=== PATIENT | male | born 1985 | race Caucasian/White ===

== ENCOUNTER 2016-10-22 22:41 | Emergency (ER) | END 2016-10-22 23:19 | disposition left against medical advice (07) | LOC: ED 22:41 | DX: R51 Headache (principal); K08.89 Other specified disorders of teeth and supporting structures; Z53.21 Procedure and treatment not carried out due to patient leaving prior to being seen by health care provider ==

== ENCOUNTER 2016-10-23 03:16 | Emergency (ER) ==
[2016-10-23 03:25] VITALS: BP 147/81
[2016-10-23] MEDS ORDERED: HYDROXYZINE PO ONE (03:53)
--- NOTE | 2016-10-23 03:58 | PROVIDER DOCUMENTATION ---
HPI-General Adult - General Chief Complaint: General Adult Stated Complaint: ABD PAIN Time Seen by Provider: 10/23/16 03:28 Source: patient Allergies/Adverse Reactions: Patient Allergies Allergy/AdvReac Type Severity Reaction Status Date / Time No Known Allergies Allergy Verified 10/23/16 03:30 Home Medications: Home Medication List Medication Instructions Recorded Confirmed Last Taken Type No Home Medications 10/23/16 10/23/16 Unknown History - History of Present Illness -Gen Adult Nature of Presenting Problems: pt states that he was released from [facility] 11 AM yesterday, after being in there for 3 days. HE is planning on going back to live with his mother however he has yet to call her. HE is not driving and is getting around via walking. HE checked into the ED earlier and when asked about that he states at that time he felt like his throat was being closed off or somebody was putting a finger down his throat. HE states he dry heaved once after that. HE is worried he might be dehydrated although he adds that he has been drinking alot of ice tea. No abdominal pain. No diarrhea or melena. No fevers. No chest pain. No sore throat or cough. He denies smoking, drinking or drugs Review of Systems - Adult - REVIEW OF SYSTEMS - ADULT Constitutional: denies: chills, fever Eyes: denies: discharge, blurred vision Ears, Nose, Mouth & Throat: denies: ear pain, hoarseness, throat pain Cardiovascular: denies: chest pain, palpitations Respiratory: denies: cough, shortness of breath Gastrointestinal: denies: abdominal pain, diarrhea, nausea, vomiting Genitourinary: denies: dysuria, frequency Musculoskeletal: denies: back pain Integumentary: denies: rash Neurological: denies: headache/migraines Psychiatric: denies: anxiety, alcohol/drug dependence, depression Endocrine: reports: no symptoms reported Hematologic/Lymphatic: reports: no symptoms reported Allergic/Immunologic: reports: no symptoms reported All Other Systems: Reviewed and Negative Past History - Adult - PAST MEDICAL HISTORY-ADULT Review of Records: reports: Old Records Reviewed, Nursing Assessment Review, Medications Reviewed, Social history reviewed & non-contributory. Major Childhood Illnesses: reports: denies history Cardiovascular: reports: denies history Respiratory: reports: denies history Gastrointestinal: reports: denies history Obstetrical/Gynecological: reports: denies history Genitourinary: reports: denies history Musculoskeletal: reports: denies history Neurological: reports: denies history Endocrine/Immune: reports: denies history Other Conditions: reports: denies history - PRIOR SURGERIES/PROCEDURES Surgical/Procedure History: reports: cholecystectomy - FAMILY HISTORY Family History: reviewed, not pertinent - SOCIAL HISTORY Smoking: denies Substance Use: denies Living Situation: family Physical Exam-General - PHYSICAL EXAM-ADULT Initial Vital Signs Reviewed: Yes - CONSTITUTIONAL General Appearance: appears well, alert, no apparent distress - EYES Eyes: PERRL/EOMI. negative: scleral icterus - HEAD, EARS, NOSE, MOUTH & THROAT HENMT: normocephalic/atraumatic, pharynx normal - NECK Neck: non-tender, full range of motion, supple, normal inspection. negative: lymphadenopathy - RESPIRATORY Respiratory: chest non-tender, lungs clear, normal breath sounds, no pleuratic chest pain, no respiratory distress, no accessory muscle use - CARDIOVASCULAR Cardiovascular: regular rate, rhythm, no murmur - GASTROINTESTINAL (ABDOMEN) Abdominal Exam: normal bowel sounds, non tender, soft, no organomegaly, no pulsatile mass - MUSCULOSKELETAL Back Exam: normal inspection, no CVA tenderness, no vertebral tenderness Extremity: normal range of motion, normal gait, no pedal edema, no calf tenderness - SKIN Integumentary: normal color, normal turgor, warm/dry - NEUROLOGIC 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, grossly normal, no motor/sensory deficits - PSYCHIATRIC Psych/Mental Status: normal mood/affect, normal thought content, normal thought process, oriented x 3 Progress - PLAN OF CARE/RESULTS Progress/Plan/Lab Results: Orders Category Date Time Status Finger Stick Blood Sugar (ED) DIRECTED Care 10/23/16 03:41 Active Hydroxyzine Med 10/23/16 03:53 Discontinued 25 mg PO NOW ONE Vital Signs Temp Pulse Resp BP Pulse Ox 10/23/16 03:22 97.6 F 77 18 147/81 99 No Known Allergies Allergy (Verified 10/23/16 03:30) No Home Medications 10/23/16 Departure - Departure Time of Disposition Order: 04:00 DIAGNOSIS: Anxiety Disposition: HOME 01 Certified Medical Emergency: Emergent Condition: Good Additional Instructions: ED Follow Up Instructions: You have been treated by a care provider in the Emergency Department. These instructions are being provided to you so you can have an understanding of how to care for yourself upon discharge. Upon discharge from the Emergency Department, you are responsible for making arrangements for follow-up care by a physician of your choice. Take all prescribed medications as directed. Return to the Emergency Department immediately for any new or worsening symptoms. You may call the Physician Referral phone number at [phone] to obtain a list of Physicians who are taking new patients.
== END 2016-10-23 04:05 | disposition home or self-care (01) ==
LOC: ED 03:16
DX: F41.9 Anxiety disorder, unspecified (principal)
CPT/HCPCS: 82948